=== PATIENT | female | born 1995 | race American Indian/Alaskan Native ===

== ENCOUNTER 2020-06-26 21:48 | Emergency (ER) | payer SELFPAY ==
[2020-06-26 22:35] VITALS: BP 128/83
[2020-06-26 23:27] LABS: Bilirubin,Urine NEG (Negative); Blood,Urine NEG (Negative); Color,Urine Straw (Yellow); Protein,Urine <15 mg/dL mg/dL (Negative); Urobilinogen,Urine < 2.0 mg/dL (<2.0)
[2020-06-26 23:39] LABS: Alanine Aminotransferase 216 units/L (7-56); Albumin 4.8 g/dL (3.9-5); Blood Urea Nitrogen 7 mg/dL (7-17); Calcium 10.2 mg/dL (8.4-10.2); Hemolysis Index 1
[2020-06-26 23:41] LABS: HCG Qualitative,Urine Negative (Negative)
[2020-06-26 23:46] LABS: Basophils # (Auto) 0.1 K/mm3 (0.0-0.1); Basophils % (Auto) 0.7 % (0.0-1.8); Eosinophils # (Auto) 0.2 K/mm3 (0.0-0.4); Eosinophils % (Auto) 2.4 % (0.0-4.3); Hematocrit 42.2 % (30.3-42.9); Hemoglobin 14.4 gm/dl (10.1-14.3); Lymphocytes # (Auto) 1.6 K/mm3 (1.2-5.4); Lymphocytes % (Auto) 17.5 % (13.4-35.0); Mean Corpuscular HGB Conc 34 % (30-34); Mean Corpuscular Volume 95 fl (79-97); Monocytes # (Auto) 0.9 K/mm3 (0.0-0.8); Monocytes % (Auto) 9.8 % (0.0-7.3); Platelet Count 384 K/mm3 (140-440); Red Blood Count 4.46 M/mm3 (3.65-5.03); Red Cell Distribution Width 13.6 % (13.2-15.2)
[2020-06-26 23:56] LABS: BUN/Creatinine Ratio 12
[2020-06-27] MEDS ORDERED: LIDOCAINE VISCOUS 2% 15 ML ORAL LIQD PO ONE (00:47)
[2020-06-27] MEDS ORDERED: ALUM-MAG HYDROXIDE-SIMETHICONE 200-200-20MG/5ML ORAL LIQD 30 ML PO ONE (00:47)
[2020-06-27] MEDS ORDERED: ONDANSETRON 4 MG ODT TAB PO ONE (00:47)
[2020-06-27] MEDS ORDERED: DICYCLOMINE 20 MG TAB PO ONE (00:47)
[2020-06-27] MEDS ORDERED: FAMOTIDINE 20 MG TAB PO ONE (00:47)
--- NOTE | 2020-06-27 03:18 | Ultrasound Report ---
ULTRASOUND ABDOMEN, LIMITED (RIGHT UPPER QUADRANT) INDICATION: Right upper quadrant pain. COMPARISON: None FINDINGS: Pancreas: Not well visualized Liver: The liver is echogenic consistent with hepatic steatosis. No focal hepatic abnormality noted. Gallbladder: The gallbladder is not well-distended. Given this limitation, no obvious gallstones or g allbladder wall thickening is noted. Bile ducts: Common Bile Duct is 1-2 mm Free fluid: None. Additional Findings: None. IMPRESSION: 1. Echogenic hepatic parenchyma consistent with hepatic steatosis. 2. Gallbladder is not well-distended, but given this limitation, no obvious gallstones or gallbladder wall thickening noted. 3. Poor visualization of the pancreas. Signer Name: Natalya Hensley MD Signed: 06/27/2020 3:13 AM Workstation Name: [id number]
--- NOTE | 2020-06-27 05:04 | Emergency Department Report ---
ED Abdominal Pain HPI - General Chief Complaint: Abdominal Pain Stated Complaint: ABD PAIN Source: patient Mode of arrival: Ambulatory Limitations: No Limitations - History of Present Illness Initial Comments: Patient is a nulliparous 24-year-old -Tajik female with a history of chronic alcohol abuse who presents to the ED with complaint of acute onset persistent epigastric and right upper quadrant pain with nausea for the last 2 days. Patient states that she drinks a lot of alcohol, even in the morning when she wakes up. Patient states that in the last 12 hours she had been drinking alcohol heavily as well. Patient states that the pain in the right upper quad rant and epigastric area have been persistent and worse especially in the last 12 hours. Patient denies vomiting, diarrhea, chest pain, shortness of breath, fever, chills, dysuria, urinary frequency and urgency, sore throat, headache, dyspareunia, change in vision, homicidal or suicidal ideation or vaginal bleeding. MD Complaint: abdominal pain (Epigastric and right upper quadrant pain), other (Nausea) -: Sudden, days(s) (2) Location: RUQ, epigastric Radiation: RUQ, epigastric Migration to: no migration Severity: severe Severity scale (0 -10): 7 Quality: cramping, sharp Consistency: constant Improves With: nothing Worsens With: eating Context: other (chronic alcohol abuse) Associated Symptoms: denies other symptoms, nausea, anorexia. denies: vomiting, diarrhea, fever, chills, dysuria, hematemesis, hematochezia, melena, hematuria, syncope, other - Related Data LMP Date: 06/18/20 Previous Rx's Medication Instructions Recorded Last Taken Type Amoxicillin [Trimox CAP] 500 mg PO BID 10 Days #20 capsule 01/07/20 Unknown Rx Benzocaine/Mentho [Cepacol X 1 each MM BID #1 packet 01/07/20 Unknown Rx Strength] Dicyclomine [Bentyl] 20 mg PO Q6H PRN #30 tablet 06/27/20 Unknown Rx Famotidine [Pepcid] 20 mg PO BID #60 tablet 06/27/20 Unknown Rx Ondansetron [Zofran Odt] 4 mg PO Q6HR PRN #15 tab.rapdis 06/27/20 Unknown Rx Allergies Allergy/AdvReac Type Severity Reaction Status Date / Time No Known Allergies Allergy Unverified 01/07/20 18:29 ED Review of Systems ROS: Stated complaint: ABD PAIN Other details as noted in HPI Constitutional: denies: chills, fever Eyes: denies: eye pain, eye discharge, vision change ENT: denies: ear pain, throat pain Respiratory: denies: cough, shortness of breath, wheezing Cardiovascular: denies: chest pain, palpitations Endocrine: no symptoms reported Gastrointestinal: abdominal pain (Epigastric, right upper quadrant), nausea. denies: diarrhea Genitourinary: denies: urgency, dysuria, discharge Musculoskeletal: denies: back pain, joint swelling, arthralgia Skin: denies: rash, lesions Neurological: denies: headache, weakness, paresthesias Psychiatric: denies: anxiety, depression Hematological/Lymphatic: denies: easy bleeding, easy bruising ED Past Medical Hx - Past Medical History Previous Medical History?: No - Surgical History Past Surgical History?: No - Social History Smoking Status: Current Every Day Smoker Substance Use Type: Alcohol - Medications Home Medications: Home Medications Medication Instructions Recorded Confirmed Last Taken Type Amoxicillin [Trimox CAP] 500 mg PO BID 10 Days #20 capsule 01/07/20 Unknown Rx Benzocaine/Mentho [Cepacol X 1 each MM BID #1 packet 01/07/20 Unknown Rx Strength] Dicyclomine [Bentyl] 20 mg PO Q6H PRN #30 tablet 06/27/20 Unknown Rx Famotidine [Pepcid] 20 mg PO BID #60 tablet 06/27/20 Unknown Rx Ondansetron [Zofran Odt] 4 mg PO Q6HR PRN #15 tab.rapdis 06/27/20 Unknown Rx ED Physical Exam - General Limitations: No Limitations General appearance: alert, in no apparent distress - Head Head exam: Present: atraumatic, normocephalic, normal inspection - Eye Eye exam: Present: normal appearance, PERRL, EOMI Pupils: Present: normal accommodation - ENT ENT exam: Present: normal exam, normal orophraynx, mucous membranes moist, TM's normal bilaterally, normal external ear exam - Neck Neck exam: Present: normal inspection, full ROM - Respiratory Respiratory exam: Present: normal lung sounds bilaterally. Absent: respiratory distress, wheezes, rales, rhonchi, chest wall tenderness, accessory muscle use, decreased breath sounds - Cardiovascular Cardiovascular Exam: Present: regular rate, normal rhythm, normal heart sounds. Absent: systolic murmur, diastolic murmur, rubs, gallop - GI/Abdominal GI/Abdominal exam: Present: soft, tenderness (Palpable mild epigastric and right upper quadrant tenderness), normal bowel sounds. Absent: guarding, rebound, hyperactive bowel sounds, hypoactive bowel sounds, mass - Bi-manual exam: Present: other (Pelvic exam deferred) - Extremities Exam Extremities exam: Present: normal inspection, full ROM, normal capillary refill - Back Exam Back exam: Present: normal inspection, full ROM. Absent: tenderness, CVA tenderness (R), CVA tenderness (L), muscle spasm - Neurological Exam Neurological exam: Present: alert, oriented X3, CN II-XII intact, normal gait, reflexes normal - Psychiatric Psychiatric exam: Present: normal affect, normal mood, depressed, anxious. Absent: agitated, homicidal ideation, suicidal ideation - Skin Skin exam: Present: warm, dry, intact, normal color. Absent: rash ED Course Vital Signs 06/26/20 22:31 Temperature 97.8 F Pulse Rate 97 H Respiratory 16 Rate Blood Pressure 128/83 O2 Sat by Pulse 97 Oximetry ED Medical Decision Making - Lab Data Result diagrams: 06/26/20 22:51 06/26/20 22:51 - Radiology Data Radiology results: report reviewed, image reviewed Findings [address] [address] Ultrasound Report Signed Patient: EDGARD BRADY MR#: [id number] : 1995 Acct:[id number] Age/Sex: 24 / F ADM Date: 06/26/20 Loc: ED Attending Dr: Ordering Physician: CAE GOMEZ Date of Service: 06/27/20 Procedure(s): US abdomen limited Accession Number(s): [id number] cc: ACE GOMEZ ULTRASOUND ABDOMEN, LIMITED (RIGHT UPPER QUADRANT) INDICATION: Right upper quadrant pain. COMPARISON: None FINDINGS: Pancreas: Not well visualized Liver: The liver is echogenic consistent with hepatic steatosis. No focal hepatic abnormality noted. Gallbladder: The gallbladder is not well-distended. Given this limitation, no obvious gallstones or gallbladder wall thickening is noted. Bile ducts: Common Bile Duct is 1-2 mm Free fluid: None. Additional Findings: None. IMPRESSION: 1. Echogenic hepatic parenchyma consistent with hepatic steatosis. 2. Gallbladder is not well-distended, but given this limitation, no obvious gallstones or gallbladder wall thickening noted. 3. Poor visualization of the pancreas. Signer Name: Natalya Hensley MD Signed: 06/27/2020 3:13 AM Workstation Name: [id number] Transcribed By: Dictated By: Natalya Hensley MD Electronically Authenticated By: Natalya Hensley MD Signed Date/Time: 06/27/20312 DD/ 0 TD/TT: - Medical Decision Making This is a nulliparous 24-year-old -Tajik female with a history of chronic alcohol abuse who presents to the ED with complaint of acute onset persistent epigastric and right upper quadrant pain with nausea for the last 2 days. Patient states that she drinks a lot of alcohol, even in the morning when she wakes up. Patient states that in the last 12 hours she had been drinking alcohol heavily as well. Patient states that the pain in the right upper quadrant and epigastric area have been persistent and worse especially in the last 12 hours. In the ED, patient is alert and oriented x3 and is not in distress. Patient was treated for nausea and vomiting, also treated with antacids and pain medications. Lab test results were reviewed and showed AST of 182 and ALT of 216 with a normal alk phos. The rest of the lab test results were nonactionable. Gallbladder ultrasound showed echogenic hepatic parenchyma consistent with hepatic steatosis. It also showed gallbladder which is not well-distended, but given this limitation, no obvious gallstones or gallbladder wall thickening noted. On reevaluation, patient felt better and was discharged home on medications and advised to follow-up with her primary care physician in 7 to 10 days for reevaluation. Patient was also advised to consider going for alcohol detox to treat her chronic alcoholism. Patient was advised to return to the ED immediately if symptoms get worse. - Differential Diagnosis GERD; alcohol gastritis; gallstones; cholecystitis; UTI; kidney stones Critical care attestation.: If time is entered above; I have spent that time in minutes in the direct care of this critically ill patient, excluding procedure time. ED Disposition Clinical Impression: Acute epigastric pain Alcoholic gastritis without bleeding Qualifiers: Chronicity: acute Qualified Code(s): K29.20 - Alcoholic gastritis without bleeding GERD (gastroesophageal reflux disease) Qualifiers: Esophagitis presence: without esophagitis Qualified Code(s): K21.9 - Gastro- esophageal reflux disease without esophagitis Disposition: TO HOME OR SELFCARE Is pt being admited?: No Does the pt Need Aspirin: No Condition: Stable Instructions: Abdominal Pain (ED), Abdominal Pain, Adult, [id number], Gastritis, Adult, [id number], Gastroesophageal Reflux Disease, Adult, [id number] Additional Instructions: All lab test results were reviewed and showed significantly elevated transaminases due to chronic alcohol abuse. The gallbladder ultrasound was unremarkable with no gallstones but revealed hepatic steatosis consistent with chronic alcoholism. Therefore take medications with food, drink plenty of fluids and follow-up with your primary care physician in 5 to 7 days for reevaluation. Consider alcohol detox programs to help with your chronic alcoholism. Return to the ED immediately if symptoms get worse. Prescriptions: Dicyclomine [Bentyl] 20 mg PO Q6H PRN #30 tablet PRN Reason: Abdominal pain Famotidine [Pepcid] 20 mg PO BID #60 tablet Ondansetron [Zofran Odt] 4 mg PO Q6HR PRN #15 tab.rapdis PRN Reason: Nausea Referrals: [facility] [place] [Provider Group] - 7-10 days Time of Disposition: 05:09 Print Language: LATVIAN
== END 2020-06-27 05:40 | disposition home or self-care (01) ==
LOC: ED 21:48
DX: K21.9 Gastro-esophageal reflux disease without esophagitis (principal); K29.20 Alcoholic gastritis without bleeding; R10.13 Epigastric pain; F17.200 Nicotine dependence, unspecified, uncomplicated; Z79.899 Other long term (current) drug therapy
CPT/HCPCS: 36415; 76705; 80053; 81001; 81025; 85025; Q0162

== ENCOUNTER 2020-08-12 19:13 | Emergency (ER) | payer SELFPAY ==
[2020-08-12 19:31] VITALS: BP 128/85
[2020-08-12] MEDS ORDERED: IBUPROFEN 600 MG TAB PO ONE (19:35)
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
== END 2020-08-12 20:45 | disposition home or self-care (01) ==
LOC: ED 19:13
DX: S16.1XXA Strain of muscle, fascia and tendon at neck level, initial encounter (principal); S39.011A Strain of muscle, fascia and tendon of abdomen, initial encounter; F17.200 Nicotine dependence, unspecified, uncomplicated; Z79.899 Other long term (current) drug therapy; V49.59XA Passenger injured in collision with other motor vehicles in traffic accident, initial encounter; Y92.410 Unspecified street and highway as the place of occurrence of the external cause; Y93.89 Activity, other specified; Y99.8 Other external cause status

== ENCOUNTER 2021-11-20 18:14 | Emergency (ER) | payer SELFPAY ==
[2021-11-20 21:10] LABS: Bilirubin,Urine NEG (Negative); Blood,Urine NEG (Negative); Color,Urine Yellow (Yellow); Mucus,Urine FEW /HPF; Protein,Urine <15 mg/dL mg/dL (Negative)
[2021-11-20 21:13] LABS: Basophils % (Auto) 0.5 % (0.0-1.8); Eosinophils # (Auto) 0.3 K/mm3 (0.0-0.4); Eosinophils % (Auto) 3.6 % (0.0-4.3); Hematocrit 44.3 % (30.3-42.9); Hemoglobin 14.7 gm/dl (10.1-14.3); Lymphocytes # (Auto) 1.3 K/mm3 (1.2-5.4); Lymphocytes % (Auto) 15.9 % (13.4-35.0); Mean Corpuscular HGB Conc 33 % (30-34); Mean Corpuscular Volume 95 fl (79-97); Monocytes # (Auto) 0.8 K/mm3 (0.0-0.8); Monocytes % (Auto) 9.3 % (0.0-7.3); Platelet Count 374 K/mm3 (140-440); Red Blood Count 4.65 M/mm3 (3.65-5.03)
[2021-11-20 21:33] LABS: Alanine Aminotransferase 188 units/L (7-56); Albumin 4.5 g/dL (3.9-5); Blood Urea Nitrogen 12 mg/dL (7-17); Calcium 9.7 mg/dL (8.4-10.2); Hemolysis Index 8
[2021-11-20 21:34] LABS: BUN/Creatinine Ratio 24
[2021-11-20] MEDS ORDERED: SODIUM CHLORIDE 0.9% 1000 ML 1,000 ML IV ONE (23:49)
[2021-11-20] MEDS ORDERED: ONDANSETRON 4 MG/2 ML INJ IV ONE (23:49)
--- NOTE | 2021-11-21 00:01 | Emergency Department Report ---
ED Abdominal Pain HPI - General Chief Complaint: Abdominal Pain Stated Complaint: STOMACH ISSUES Time Seen by Provider: 11/20/21 23:47 Source: patient Mode of arrival: Ambulatory Limitations: No Limitations - History of Present Illness Initial Comments: Patient 26-year-old female who presents for abdominal pain right upper quadrant radiating to right flank x3 days. With nausea vomiting. Patient states history of fatty liver disease EtOH and smoking. Last EtOH was yesterday. Patient denies symptoms of withdrawal anxiety no tremor no dizziness or lightheadedness. Last nausea vomiting was yesterday. Last p.o. intake was this AM. Pain is described at 5/10 burning aching. Pain exacerbated by p.o. intake. Slight pain is relieved by nothing tried. Patient denies dysuria frequency urgency or discharge. Last menstrual cycle 1 week ago states menses ended yesterday. MD Complaint: abdominal pain - Related Data Previous Rx's Medication Instructions Recorded Last Taken Type Amoxicillin [Trimox CAP] 500 mg PO BID 10 Days #20 capsule 01/07/20 Unknown Rx Benzocaine/Mentho [Cepacol X 1 each MM BID #1 packet 01/07/20 Unknown Rx Strength] Dicyclomine [Bentyl] 20 mg PO Q6H PRN #30 tablet 06/27/20 Unknown Rx Famotidine [Pepcid] 20 mg PO BID #60 tablet 06/27/20 Unknown Rx Ondansetron [Zofran Odt] 4 mg PO Q6HR PRN #15 tab.rapdis 06/27/20 Unknown Rx Naproxen 500 mg PO BID PRN #14 tablet 08/12/20 Unknown Rx methOCARBAMOL [Robaxin TAB] 1,500 mg PO Q8H PRN #20 tablet 08/12/20 Unknown Rx Azithromycin 500 mg PO DAILY #5 tab 11/21/21 Unknown Rx Famotidine [Pepcid] 20 mg PO BID #30 tablet 11/21/21 Unknown Rx Ibuprofen [Motrin 800 MG tab] 800 mg PO Q8HR PRN #30 tablet 11/21/21 Unknown Rx Allergies Allergy/AdvReac Type Severity Reaction Status Date / Time No Known Allergies Allergy Unverified 01/07/20 18:29 ED Review of Systems ROS: Stated complaint: STOMACH ISSUES Other details as noted in HPI Constitutional: denies: chills, fever, malaise Eyes: denies: eye pain, eye discharge, vision change ENT: denies: ear pain, throat pain Respiratory: denies: cough, shortness of breath, wheezing Cardiovascular: denies: chest pain, palpitations Endocrine: no symptoms reported Gastrointestinal: abdominal pain, nausea, vomiting. denies: diarrhea, constipation Genitourinary: denies: urgency, dysuria, discharge Musculoskeletal: denies: back pain, joint swelling, arthralgia Skin: denies: rash, lesions Neurological: denies: headache, weakness, paresthesias, vertigo Psychiatric: denies: anxiety, depression Hematological/Lymphatic: denies: easy bleeding, easy bruising ED Past Medical Hx - Social History Smoking Status: Current Every Day Smoker Substance Use Type: Alcohol - Medications Home Medications: Home Medications Medication Instructions Recorded Confirmed Last Taken Type Amoxicillin [Trimox CAP] 500 mg PO BID 10 Days #20 capsule 01/07/20 Unknown Rx Benzocaine/Mentho [Cepacol X 1 each MM BID #1 packet 01/07/20 Unknown Rx Strength] Dicyclomine [Bentyl] 20 mg PO Q6H PRN #30 tablet 06/27/20 Unknown Rx Famotidine [Pepcid] 20 mg PO BID #60 tablet 06/27/20 Unknown Rx Ondansetron [Zofran Odt] 4 mg PO Q6HR PRN #15 tab.rapdis 06/27/20 Unknown Rx Naproxen 500 mg PO BID PRN #14 tablet 08/12/20 Unknown Rx methOCARBAMOL [Robaxin TAB] 1,500 mg PO Q8H PRN #20 tablet 08/12/20 Unknown Rx Azithromycin 500 mg PO DAILY #5 tab 11/21/21 Unknown Rx Famotidine [Pepcid] 20 mg PO BID #30 tablet 11/21/21 Unknown Rx Ibuprofen [Motrin 800 MG tab] 800 mg PO Q8HR PRN #30 tablet 11/21/21 Unknown Rx ED Physical Exam - General Limitations: No Limitations General appearance: alert, in no apparent distress - Head Head exam: Present: normocephalic, normal inspection - Eye Eye exam: Present: normal appearance, EOMI Pupils: Present: normal accommodation - ENT ENT exam: Present: mucous membranes moist - Neck Neck exam: Present: normal inspection, full ROM. Absent: tenderness - Respiratory Respiratory exam: Present: normal lung sounds bilaterally. Absent: respiratory distress, wheezes, stridor - Cardiovascular Cardiovascular Exam: Present: regular rate, normal rhythm, normal heart sounds. Absent: systolic murmur, diastolic murmur, rubs, gallop - GI/Abdominal GI/Abdominal exam: Present: soft, tenderness (Right upper quadrant), normal bowel sounds. Absent: distended, guarding, rebound, rigid, bruit, hernia - Expanded GI/Abdominal Exam Expanded GI/Abdominal exam: Present: Arnold's sign. Absent: psoas sign, obturator sign, heel tap sign, Rovsing's sign, tenderness at [place], ascites - Rectal Rectal exam: Present: deferred - Extremities Exam Extremities exam: Present: normal inspection, full ROM, normal capillary refill. Absent: tenderness - Back Exam Back exam: Present: normal inspection, full ROM. Absent: tenderness, CVA tenderness (R), CVA tenderness (L) - Neurological Exam Neurological exam: Present: alert, oriented X3, CN II-XII intact, normal gait - Psychiatric Psychiatric exam: Present: normal affect, normal mood - Skin Skin exam: Present: warm, dry, intact, normal color ED Course Vital Signs 11/20/21 19:54 Temperature 98.5 F Pulse Rate 99 H Respiratory 18 Rate Blood Pressure 154/108 O2 Sat by Pulse 99 Oximetry ED Medical Decision Making - Lab Data Result diagrams: 11/20/21 20:39 11/20/21 20:39 Labs 11/20/21 11/20/21 11/20/21 20:39 20:39 Unknown WBC 8.3 RBC 4.65 Hgb 14.7 H Hct 44.3 H MCV 95 MCH 32 MCHC 33 RDW 13.0 L Plt Count 374 Lymph % (Auto) 15.9 [place] % (Auto) 9.3 H Eos % (Auto) 3.6 Baso % (Auto) 0.5 Lymph # (Auto) 1.3 [place] # (Auto) 0.8 Eos # (Auto) 0.3 Baso # (Auto) 0.0 Seg Neutrophils % 70.7 H Seg Neutrophils # 5.8 Sodium 137 Potassium 3.9 Chloride 97.5 L Carbon Dioxide 24 Anion Gap 19 BUN 12 Creatinine 0.5 L Estimated GFR > 60 BUN/Creatinine Ratio 24 Glucose 86 Calcium 9.7 Total Bilirubin 0.70 AST 177 H ALT 188 H Alkaline Phosphatase 83 Total Protein 8.5 H Albumin 4.5 Albumin/Globulin Ratio 1.1 Urine Color Yellow Urine Turbidity Slightly-cloudy Urine pH 6.0 Ur Specific [place] 1.019 Urine Protein <15 mg/dl Urine Glucose (UA) Neg Urine Ketones Neg Urine Blood Neg Urine Nitrite Neg Urine Bilirubin Neg Urine Urobilinogen 2.0 Ur Leukocyte Esterase Mod Urine WBC (Auto) 18.0 H Urine RBC (Auto) 7.0 U Epithel Cells (Auto) 12.0 Urine Mucus Few - Radiology Data Radiology results: report reviewed, image reviewed CT ABDOMEN AND PELVIS WITH CONTRAST HISTORY: Pt complains of flank / abdominal pain COMPARISON: None TECHNIQUE: Routine abdominal and pelvic CT exam performed following intravenous contrast administration.. All CT scans at this location are performed using CT dose reduction for ALARA by means of automated exposure control. FINDINGS: CT ABDOMEN: Lung Bases: There is some mild patchy areas of groundglass opacity in the lower lungs. Liver: Decreased attenuation consistent with hepatic steatosis. Biliary: No significant abnormality. Spleen: No significant abnormality. Unenlarged. Pancreas: No significant abnormality. Adrenals: No significant abnormality. Kidneys: No significant abnormality. Lymphatics: No lymphadenopathy. Vasculature: No significant abnormality. Bowel/Peritoneum: No significant abnormality. No free air. No free fluid. Normal appendix. CT PELVIC: : No significant abnormality. Lymphatics: No lymphadenopathy. Osseous Structures: No aggressive appearing osseous lesions. Additional Findings: None IMPRESSION: 1. Mild patchy areas of groundglass opacity in both lower lungs likely indicating atypical pneumonia. 2. Hepatic steatosis. Signer Name: Christos Bolaños MD Signed: 11/21/2021 1:07 AM Workstation Name: [id number] Transcribed By: HIRO Dictated By: Christos Bolaños MD Electronically Authenticated By: Christos Bolaños MD Signed Date/Time: 11/21/21106 DD/ 5 TD/TT: CHEST 2 VIEWS INDICATION / CLINICAL INFORMATION: cap. COMPARISON: None available. FINDINGS: SUPPORT DEVICES: None. HEART / MEDIASTINUM: No significant abnormality. LUNGS / PLEURA: No significant pulmonary or pleural abnormality. No pneumothorax. ADDITIONAL FINDINGS: No significant additional findings. IMPRESSION: 1. No acute findings. Signer Name: Christos Bolaños MD Signed: 11/21/2021 2:01 AM Workstation Name: [id number] Transcribed By: HIRO Dictated By: Christos Bolaños MD Electronically Authenticated By: Christos Bolaños MD Signed Date/Time: 11/21/21200 DD/ 0 TD/TT: - Medical Decision Making CT abdomen pelvis no gallstones no renal stones no pancreatitis, bilateral lower lobe groundglass infiltrate likely CAP. Chest x-ray normal however. Patient treated for CAP, urine positive for leukocytes WBCs treated for UTI. Patient will be DC'd home with prescriptions, there is no shortness of breath, no wheezing no productive cough at this time. Patient is tolerating p.o. intake without nausea vomiting at this time. There has been no fever or chills. Symptoms likely viral. Patient will follow primary care doctor in 2 to 3 days. Return to emergency department should symptoms worsen. Patient verbalizes agreement and understanding with discharge plan. Critical care attestation.: If time is entered above; I have spent that time in minutes in the direct care of this critically ill patient, excluding procedure time. ED Disposition Clinical Impression: Viral illness UTI (urinary tract infection) Qualifiers: Urinary tract infection type: acute cystitis Hematuria presence: without hematuria Qualified Code(s): N30.00 - Acute cystitis without hematuria Disposition: HOME / SELF CARE / HOMELESS Is pt being admited?: No Does the pt Need Aspirin: No Condition: Stable Instructions: Abdominal Pain (ED), Urinary Tract Infection, Adult, [id number], Viral Illness, Adult Additional Instructions: Take medications as prescribed, follow-up with your doctor in 2 to 3 days. Return to emergency department should symptoms worsen. Prescriptions: Azithromycin 500 mg PO DAILY #5 tab Ibuprofen [Motrin 800 MG tab] 800 mg PO Q8HR PRN #30 tablet PRN Reason: pain Famotidine [Pepcid] 20 mg PO BID #30 tablet Referrals: NETO MERCER MD [Staff Physician] - 3-5 Days Forms: Work/School Release Form(ED) Time of Disposition: 02:14
[2021-11-21 00:08] LABS: HCG Qualitative,Urine Negative (Negative)
--- NOTE | 2021-11-21 01:11 | Cat Scan Report ---
CT ABDOMEN AND PELVIS WITH CONTRAST HISTORY: Pt complains of flank / abdominal pain COMPARISON: None TECHNIQUE: Routine abdominal and pelvic CT exam performed following intravenous contrast administrat ion.. All CT scans at this location are performed using CT dose reduction for ALARA by means of autom ated exposure control. FINDINGS: CT ABDOMEN: Lung Bases: There is some mild patchy areas of groundglass opacity in the lower lungs. Liver: Decreased attenuation consistent with hepatic steatosis. Biliary: No significant abnormality. Spleen: No significant abnormality. Unenlarged. Pancreas: No significant abnormality. Adrenals: No significant abnormality. Kidneys: No significant abnormality. Lymphatics: No lymphadenopathy. Vasculature: No significant abnormality. Bowel/Peritoneum: No significant abnormality. No free air. No free fluid. Normal appendix. CT PELVIC: : No significant abnormality. Lymphatics: No lymphadenopathy. Osseous Structures: No aggressive appearing osseous lesions. Additional Findings: None IMPRESSION: 1. Mild patchy areas of groundglass opacity in both lower lungs likely indicating atypical pneumonia. 2. Hepatic steatosis. Signer Name: Christos Bolaños MD Signed: 11/21/2021 1:07 AM Workstation Name: [id number]
[2021-11-21] MEDS ORDERED: AZITHROMYCIN 250 MG TAB PO ONE (01:44)
[2021-11-21] MEDS ORDERED: cefTRIAXone/NS 1 GM/50 ML 1 GM/50 ML BAG IV ONE (01:44)
--- NOTE | 2021-11-21 02:05 | XRay Report ---
CHEST 2 VIEWS INDICATION / CLINICAL INFORMATION: cap. COMPARISON: None available. FINDINGS: SUPPORT DEVICES: None. HEART / MEDIASTINUM: No significant abnormality. LUNGS / PLEURA: No significant pulmonary or pleural abnormality. No pneumothorax. ADDITIONAL FINDINGS: No significant additional findings. IMPRESSION: 1. No acute findings. Signer Name: Christos Bolaños MD Signed: 11/21/2021 2:01 AM Workstation Name: [id number]
[2021-11-21 02:40] VITALS: BP 142/92
== END 2021-11-21 02:38 | disposition home or self-care (01) ==
LOC: ED 18:14
DX: B34.9 Viral infection, unspecified (principal); N39.0 Urinary tract infection, site not specified; F17.200 Nicotine dependence, unspecified, uncomplicated
CPT/HCPCS: 36415; 71046; 74177; 80053; 81001; 81025; 83690; 85025; 87086; 96361; 96365; 96375; 99284; J0696; J2405; J7030; Q9967; Q0162

== ENCOUNTER 2022-05-03 06:44 | Emergency (ER) | payer SELFPAY ==
--- NOTE | 2022-05-03 13:00 | Emergency Department Report ---
ED General Adult HPI - General Chief complaint: Headache Stated complaint: HEAD PAIN Source: patient Mode of arrival: Ambulatory Limitations: No Limitations - History of Present Illness Initial comments: 26-year-old female presents to the ED complaining of a headache x 3 days. Patient states that she has difficult time sleeping and is causing her to have a bad headache. States that she is taking [id number] Excedrin without any relief. Denies any nausea vomiting at present time. Stated present time headache is a 2 out of 10. Denies any LOC. Denies any chest pain or shortness of breath. She states that she her mother and has been having a difficult time resting. Patient is alert and oriented x3. No acute distress noted. No ill appearance noted. - Related Data Previous Rx's Medication Instructions Recorded Last Taken Type Amoxicillin [Trimox CAP] 500 mg PO BID 10 Days #20 capsule 01/07/20 Unknown Rx Benzocaine/Mentho [Cepacol X 1 each MM BID #1 packet 01/07/20 Unknown Rx Strength] Dicyclomine [Bentyl] 20 mg PO Q6H PRN #30 tablet 06/27/20 Unknown Rx Famotidine [Pepcid] 20 mg PO BID #60 tablet 06/27/20 Unknown Rx Ondansetron [Zofran Odt] 4 mg PO Q6HR PRN #15 tab.rapdis 06/27/20 Unknown Rx Naproxen 500 mg PO BID PRN #14 tablet 08/12/20 Unknown Rx methOCARBAMOL [Robaxin TAB] 1,500 mg PO Q8H PRN #20 tablet 08/12/20 Unknown Rx Azithromycin 500 mg PO DAILY #5 tab 11/21/21 Unknown Rx Famotidine [Pepcid] 20 mg PO BID #30 tablet 11/21/21 Unknown Rx Ibuprofen [Motrin 800 MG tab] 800 mg PO Q8HR PRN #30 tablet 11/21/21 Unknown Rx Cyclobenzaprine [Flexeril] 10 mg PO TID PRN 15 Days #30 tab 05/03/22 Unknown Rx Ketorolac [Toradol] 10 mg PO Q6H PRN 5 Days #20 tab 05/03/22 Unknown Rx Promethazine [Phenergan] 25 mg PO Q6HR PRN 15 Days #30 tab 05/03/22 Unknown Rx Allergies Allergy/AdvReac Type Severity Reaction Status Date / Time No Known Allergies Allergy Unverified 05/03/22 07:40 ED Review of Systems ROS: Stated complaint: HEAD PAIN Other details as noted in HPI Constitutional: denies: chills, fever Eyes: denies: eye pain, eye discharge, vision change ENT: denies: ear pain, throat pain Respiratory: denies: cough, shortness of breath, wheezing Cardiovascular: denies: chest pain, palpitations Endocrine: no symptoms reported Gastrointestinal: denies: abdominal pain, nausea, diarrhea Genitourinary: denies: urgency, dysuria, discharge Musculoskeletal: denies: back pain, joint swelling, arthralgia Skin: denies: rash, lesions Neurological: denies: headache, weakness, paresthesias Psychiatric: denies: anxiety, depression Hematological/Lymphatic: denies: easy bleeding, easy bruising ED Past Medical Hx - Past Medical History Previous Medical History?: No - Surgical History Past Surgical History?: No - Social History Smoking Status: Current Every Day Smoker Substance Use Type: Alcohol - Medications Home Medications: Home Medications Medication Instructions Recorded Confirmed Last Taken Type Amoxicillin [Trimox CAP] 500 mg PO BID 10 Days #20 capsule 01/07/20 Unknown Rx Benzocaine/Mentho [Cepacol X 1 each MM BID #1 packet 01/07/20 Unknown Rx Strength] Dicyclomine [Bentyl] 20 mg PO Q6H PRN #30 tablet 06/27/20 Unknown Rx Famotidine [Pepcid] 20 mg PO BID #60 tablet 06/27/20 Unknown Rx Ondansetron [Zofran Odt] 4 mg PO Q6HR PRN #15 tab.rapdis 06/27/20 Unknown Rx Naproxen 500 mg PO BID PRN #14 tablet 08/12/20 Unknown Rx methOCARBAMOL [Robaxin TAB] 1,500 mg PO Q8H PRN #20 tablet 08/12/20 Unknown Rx Azithromycin 500 mg PO DAILY #5 tab 11/21/21 Unknown Rx Famotidine [Pepcid] 20 mg PO BID #30 tablet 11/21/21 Unknown Rx Ibuprofen [Motrin 800 MG tab] 800 mg PO Q8HR PRN #30 tablet 11/21/21 Unknown Rx Cyclobenzaprine [Flexeril] 10 mg PO TID PRN 15 Days #30 tab 05/03/22 Unknown Rx Ketorolac [Toradol] 10 mg PO Q6H PRN 5 Days #20 tab 05/03/22 Unknown Rx Promethazine [Phenergan] 25 mg PO Q6HR PRN 15 Days #30 tab 05/03/22 Unknown Rx ED Physical Exam - General Limitations: No Limitations General appearance: alert, in no apparent distress - Head Head exam: Present: atraumatic, normocephalic - Eye Eye exam: Present: normal appearance - ENT ENT exam: Present: mucous membranes moist - Neck Neck exam: Present: normal inspection - Respiratory Respiratory exam: Present: normal lung sounds bilaterally. Absent: respiratory distress - Cardiovascular Cardiovascular Exam: Present: regular rate, normal rhythm. Absent: systolic murmur, diastolic murmur, rubs, gallop - GI/Abdominal GI/Abdominal exam: Present: soft, normal bowel sounds - Extremities Exam Extremities exam: Present: normal inspection - Back Exam Back exam: Present: normal inspection - Neurological Exam Neurological exam: Present: alert, oriented X3 - Psychiatric Psychiatric exam: Present: normal affect, normal mood - Skin Skin exam: Present: warm, dry, intact, normal color. Absent: rash ED Course Vital Signs 05/03/22 07:38 Temperature 98.5 F Pulse Rate 65 Respiratory 18 Rate Blood Pressure 128/60 [Right] O2 Sat by Pulse 99 Oximetry ED Medical Decision Making - Medical Decision Making 26-year-old female presents to the ED complaining of a headache x 3 days. Patient states that she has difficult time sleeping and is causing her to have a bad headache. States that she is taking [id number] Excedrin without any relief. Denies any nausea vomiting at present time. Stated present time headache is a 2 out of 10. Denies any LOC. Denies any chest pain or shortness of breath. She states that she her mother and has been having a difficult time resting. Patient is alert and oriented x3. No acute distress noted. No ill appearance noted. Physical examination is unremarkable Rechecked the patient is resting quietly , comfortable and feeling better. I discussed the results of diagnostic study, my clinical impression and the plan for further treatment with the patient. Patient agrees with plan and discharge at this present time. All question addressed. I have given the patient instruction regarding a diagnosis ,expectation ,follow- up and return precaution. I explained to the patient that emergent condition may arise and to return to the ED for new worsen and any new persisting condition. I have explained the importance of following up with the primary care physician or referral physician listed below has instructed. The patient verbalized understanding of discharge instruction. Critical care attestation.: If time is entered above; I have spent that time in minutes in the direct care of this critically ill patient, excluding procedure time. ED Disposition Clinical Impression: Headache Qualifiers: Headache type: unspecified Headache chronicity pattern: acute headache Intractability: not intractable Qualified Code(s): R51.9 - Headache, unspecified Disposition: HOME / SELF CARE / HOMELESS Is pt being admited?: No Does the pt Need Aspirin: No Condition: Stable Instructions: General Headache Without Cause, Analgesic Rebound Headache Additional Instructions: Take medication as prescribed Return to the ED for any worsen symptoms Prescriptions: Cyclobenzaprine [Flexeril] 10 mg PO TID PRN 15 Days #30 tab PRN Reason: Muscle Spasm Promethazine [Phenergan] 25 mg PO Q6HR PRN 15 Days #30 tab PRN Reason: Nausea Ketorolac [Toradol] 10 mg PO Q6H PRN 5 Days #20 tab PRN Reason: Pain Referrals: [facility] [Provider Group] - 3-5 Days Forms: Work/School Release Form(ED) Time of Disposition: 13:03
[2022-05-03 13:34] VITALS: BP 122/74
== END 2022-05-03 13:25 | disposition home or self-care (01) ==
LOC: ED 06:44
DX: R51.9 Headache, unspecified (principal); F17.200 Nicotine dependence, unspecified, uncomplicated
CPT/HCPCS: 99282